=== PATIENT | male | born 1960 | race Caucasian/White ===

== ENCOUNTER 2018-07-15 11:45 | Inpatient (IN) ==
[2018-07-15] MEDS ORDERED: Acetaminophen 325 MG Tablet PO PRN (15:46)
[2018-07-15] MEDS ORDERED: Aluminum/Magnesium/Simethacone Susp 30 ML UDC PO PRN (15:46)
[2018-07-16] MEDS ORDERED: Haloperidol Inj 5 MG/ML Ampul IV.PUSH PRN (08:07)
[2018-07-16] MEDS ORDERED: LORazepam 1 MG Tablet PO PRN (08:07)
[2018-07-16] MEDS: Multivitamin/Minerals Therapeutic Tablet PO SCH (10:17)
[2018-07-16] MEDS: Folic Acid 1 MG Tablet PO SCH (10:17)
--- NOTE | 2018-07-16 10:34 | P.TTN ---
- Patient Problems Problems: 1. Discharge planning 2. Medication compliance 3. Knowledge deficit 4. Lack of coping skills - Progress Toward Goals Provider Present: Dr. Anson Horton Provider Input: 07/16/18: Pt is new, Psych eval from MD to be completed. Therapist will meet with MD to discuss further findings. Nurse Input: 07/16/18: Pt is new, no concerns at this time per MARIA TERESA Trujillo. Psychiatric Counselors Present: Other Psychiatric Therapist Input: 07/16/18: Pt is new, BPSA to be completed by [facility]. D/c plan pending to BPSA findings and further eval from psychiatrist. Group Spec/RT/OT/SUGGS Present: Juliano Romero OT, IFEANYI Martínez Occupational Therapist Input: 07/16/18: Pt is new, group attendance to be evaluated after today. - Documentation Teaching Recipient: Patient
--- NOTE | 2018-07-16 10:56 | MH ---
cc: Mundo Horton MD DATE OF ADMISSION: 07/15/2018 ADMITTING DIAGNOSES: 1. Adjustment disorder with depressed mood; F43.21. Strong suspicion for malingering for assisted. 2. Alcohol use disorder, suspected severe; F10.20. LEGAL STATUS: The patient is capacitated to consent for admission and for medication/treatment. Voluntary status. HISTORY OF PRESENT ILLNESS: Mr. Rowe is a 57-year-old male with reported history of depression and anxiety, who presents in transfer from [facility] under a Bhakta Act. The patient presented there complaining of suicidal and homicidal ideation. No specific victim cited. It is noted that he was Bhakta Acted in May and June for similar issues and was sent to a psychiatric facility, but never took the medications prescribed to him after discharge or followed up on an outpatient basis. Documentation from outside hospital reviewed. Reviewing our electronic medical record, I note the patient was psychiatrically admitted under my care in March 2016. I note in my documentation that the patient was suspected of exaggerating his psychiatric symptoms then so as to prolong his inpatient psychiatric hospital stay as he was otherwise without stable housing. I also see notation of antisocial personality traits. The patient seen and examined with nurse. Chart reviewed. Case discussed with nursing staff. No behavioral issues noted. Of note, nursing staff has reason to believe that the patient is conspiring with another homeless patient on the unit to malinger for assisted. On my examination today, the patient is a vague and fairly manipulative historian. Ongoing symptom exaggeration or malingering for assisted is suspected and antisocial personality traits are noted. The patient admits that he has been prescribed multiple psychotropic medications in the past, but has not taken them faithfully. Presently, the patient describes some vague suicidal ideation without specific plan or intent. No reported urge to hurt himself on the inpatient unit. The patient does have a history of draping a sheet around his neck in a suicidal gesture during his previous hospitalization here, and I have placed an order to have the patient put into a camera room on the high acuity unit for closer monitoring, although he does presently contract for safety on the inpatient unit. Besides the suicidal ideation, the patient has a paucity of psychiatric symptoms. He complains of vague low mood and anxiety, without associated symptoms. He complains of some sleep disturbance. He says, "I'm in a fog." The patient does say "I hear things. I see things." However, the patient is unable to describe these hallucinations in any meaningful detail. Indeed, when I pressed the patient to describe them he says, "I don't know." No delusional material. No homicidal ideation presently. The remainder of the psychiatric ROS is negative. No acute physical complaints. PAST PSYCHIATRIC HISTORY: The patient reports a history of depression and anxiety. His discharge diagnosis during his hospitalization under my care in 2016 was alcohol dependence. He has not followed up on an outpatient basis with mental health. He reports that he was psychiatrically hospitalized at [facility] 2 months ago. He reports that he has attempted suicide repeatedly, by overdose chiefly and once by hanging. FAMILY HISTORY: The patient denies a family history of serious mental illness. He does report a paternal cousin completed suicide. CHEMICAL DEPENDENCY HISTORY: The patient reports he has been drinking 2 pints of liquor a day. His last drink was a week ago. He does complain of feeling somewhat shaky, but otherwise has no withdrawal symptoms. He denies history of seizures. He does endorse a history of DTs in the past. No other substance use reported. SOCIAL HISTORY: The patient is homeless. He has a high school education. He has no income. He is looking to apply for disability. He is single with no children. He is a Orthodox. He denies any history. Denies any legal history. Denies any access to guns or firearms. PAST MEDICAL HISTORY: The patient reports a history of left total hip arthroplasty, and I see it noted in the documentation from outside hospital that this was performed last month at [facility]. The patient has no history of seizure, but I do see that Depakote is listed from outside hospital medication list, possibly for psychiatric indication. MEDICATIONS: The patient reports that he has been not adherent with home medications. ALLERGIES: NO KNOWN ALLERGIES. REVIEW OF SYSTEMS: Except as noted in HPI, all this is negative. PHYSICAL EXAMINATION: VITAL SIGNS: Temperature 98.1, pulse 73 per minute, respirations 18, blood pressure 118/66, pulse oximetry 97% on room air. GENERAL: Physical examination was completed by the ED provider at outside hospital. On my examination today, the patient appears to be in no acute physical distress. NEUROLOGIC: No motor abnormalities noted. No hand tremor. No diaphoresis, no mydriasis, no other signs of GABAergic withdrawal. LABORATORY DATA: Laboratory is reviewed CBC reveals mild normocytic anemia with a hemoglobin of 12.2. White blood cell count and platelet count are within normal limits. CMP is unremarkable; urine toxicology is negative. Tylenol and salicylate level are undetectable. Alcohol level undetectable. Urinalysis fairly bland. IMAGING: X-ray of the hip revealed mild soft tissue swelling of the left hip, but no other acute process is indicated. MENTAL STATUS EXAMINATION: The patient is in hospital attire. He is fairly well groomed and maintaining basic hygiene. He is awake, alert and oriented x3. No motor abnormalities noted. Speech is within normal limits for rate, tone, and volume. Language and fund of knowledge are average. Focus and concentration are intact. Memory is grossly intact on clinical exam. Mood is reportedly depressed, but affect is fairly full and reactive and inconsistent with stated mood. Thought process linear. No loosening of associations. No delusional material elicited. Denies audiovisual hallucinations. Endorses vague suicidal ideation without specific plan or intent at this point. No homicidal ideation. Insight and judgment are adequate. ASSESSMENT AND PLAN: This is a 57-year-old male with psychiatric history as detailed above, who presents in transfer from outside hospital under Bhakta Act. On my examination today, the patient is a fairly vague and manipulative historian. There is strong suspicion for malingering for assisted. He does endorse some vague ongoing suicidal ideation, and we will plan to admit the patient to the Inpatient Psychiatric Unit to monitor for any acute impairments in safety. Admit inpatient. Voluntary status. For management of the patient's dysphoria, I will place him back on a regimen he was on last time, namely Remeron and Seroquel. Initiate Remeron 15 mg at bedtime for dysphoria and Seroquel at low dose for mood stabilization and reported hallucinations. Plan to titrate these medication to effect and as tolerated. Atarax as needed for anxiety. Melatonin as needed for sleep. I will consult the hospitalist to assist with medical management in light of the patient's recent left hip arthroplasty. CIWA scale with Ativan for the management of any withdrawal. Thiamine and folate. Seizure precautions. Vitals every 4 hours as per CIWA. Counselor to see. Collateral information. Disposition planning. ESTIMATED LENGTH OF STAY: Three to five days. MD Mahesh Bowen , 10:27 AM , 10:42 AM [facility]
[2018-07-16 11:10] LABS: Chol/HDL Ratio 3.83 Ratio; HDL Cholesterol 37.3 mg/dL (40.0-60.0)
[2018-07-16 11:11] LABS: Calcium 8.4 mg/dL (8.5-10.1); Carbon Dioxide 29.8 meq/L (21.0-32.0); Potassium 3.7 meq/L (3.5-5.1)
[2018-07-16 11:32] LABS: Hemoglobin A1c 4.3 % (4.3-6.0)
--- NOTE | 2018-07-16 17:01 | P.CONIM ---
History of Present Illness Primary Care Provider: UNKNOWN Chief Complaint: Would like something to sleep at night History of Present Illness: 57-year-old male with a history of depression, anxiety, recent left total hip arthroplasty performed on 05/19 at [facility], having been discharged 2 weeks ago until readmission recently due to suicidal ideation. Patient reports he is able to ambulate on this,, is visualized ambulating without difficulty. He reports that pain continues in left hip with movement, however is not worsened. I asked him if he wants something for the pain, and he says he really just wants something to sleep at night. He denies any fevers, chills, chest pain, shortness breath, nausea, vomiting. Patient does report history of alcohol withdrawal in the past. He denies seizures.. He says his last drink was 1 week ago, and denies any shaking or withdrawal currently. Review of Systems All other systems reviewed negative except as stated in HPI PMFSH - History History Provided By: Patient - Medical History Medical History: Medical History (Last Reviewed 07/16/18 @ 16:46 by Steven Anglin MD) Pupil irregular of left eye Traumatic brain injury - Surgical History Surgical History: Surgical History (Last Reviewed 07/16/18 @ 16:46 by Steven Anglin MD) History of total left hip replacement - Family History Family History: Family History (Last Updated 07/16/18 @ 16:47 by Steven Anglin MD) Father Alcoholism - Social History I have reviewed the patient's Social History: Yes - Tobacco History Second Hand Smoke Exposure: No Tobacco Use In Past 30 Days: No Smoking Status: Never smoker - Alcohol History How Often Do You Have a Drink Containing Alcohol: 2 to 3 times a week - Substance Use History Substance History: Active Abuse - Substance Use Type Alcohol Status: Active Route Used: By Mouth Frequency: Pt reports "I was drinking as much as I could until I black out." Last Used: Pt reports "maybe last week." Reason for Use: Sleep - Immunization History Tetanus Immunization: Unsure Hx Influenza Vaccine This Season: No Medications and Allergies Active Medications: Active Medications Acetaminophen (Tylenol) 650 mg PO Q4H PRN PRN Reason: Pain 1-5 or Temp >101F Al Hydrox/Mg Hydrox/Simethicone (Mag-Al Plus Susp Liq) 30 ml PO Q6H PRN PRN Reason: DYSPEPSIA Al Hydroxide/Mg Hydroxide (Milk Of Marcie Jonas) 30 ml PO DAILY PRN PRN Reason: CONSTIPATION Flumazenil (Romazecon Inj) 0.2 mg IV.PUSH Q1M PRN PRN Reason: OVERSEDATION Folic Acid (Folic Acid) 1 mg PO DAILY [facility] Stop: 07/21/18 08:59 Last Admin: 07/16/18 10:17 Dose: 1 mg Haloperidol Lactate (Haldol Inj) 1 mg IV.PUSH Q15M PRN PRN Reason: for severe agitation Hydroxyzine HCl (Atarax) 50 mg PO Q6H PRN PRN Reason: ANXIETY Lorazepam (Ativan) 1 mg PO Q4H PRN PRN Reason: for CIWA 8-10 Lorazepam (Ativan) 2 mg PO Q2H PRN PRN Reason: for CIWA 11-14 Lorazepam (Ativan Inj) 2 mg IV.PUSH Q2H PRN PRN Reason: for CIWA 11-14 Lorazepam (Ativan Inj) 2 mg IV.PUSH Q1H PRN PRN Reason: for CIWA 15-20 Lorazepam (Ativan Inj) 2 mg IV.PUSH Q15M PRN PRN Reason: for CIWA > 20 Lorazepam (Ativan Inj) 1 mg IV.PUSH Q4H PRN PRN Reason: for CIWA 8-10 Melatonin (Melatonin) 5 mg PO HS PRN PRN Reason: INSOMNIA Mirtazapine (Remeron) 15 mg PO HS [facility] Multivitamins/Minerals (Theragran-M) 1 tab PO DAILY [facility] Stop: 07/21/18 08:59 Last Admin: 07/16/18 10:17 Dose: 1 tab Quetiapine Fumarate (Seroquel) 25 mg PO BID [facility] Thiamine HCl (Vitamin B1) 100 mg PO DAILY [facility] Last Admin: 07/16/18 10:17 Dose: 100 mg Allergies Allergy/AdvReac Type Severity Reaction Status Date / Time No Known Allergies Allergy Uncoded 12/29/14 21:42 Exam Vital signs: Vital Signs 07/16/18 05:53 Temperature 98.1 F Pulse Rate 73 Respiratory Rate 18 Blood Pressure 118/66 Pulse Oximetry 97 Intake & Output 07/15/18 07/16/18 07/16/18 18:59 06:59 18:59 Intake Total 240 / 240 Balance 240 / 240 Intake: Oral 240 / 240 Narrative: GENERAL: Patient sitting in wheelchair, able to stand quickly and walking in room without any apparent difficulty. SKIN: Warm and dry. HEAD: Atraumatic. Normocephalic. EYES: Left pupil dilated and nonreactive which patient says is chronic secondary to old TBI many years ago. Right pupil reactive. Extraocular muscles intact.. No scleral icterus. No injection or drainage. ENT: No nasal bleeding or discharge. Mucous membranes pink and moist. NECK: Trachea midline. No JVD. CARDIOVASCULAR: Regular rate and rhythm. RESPIRATORY: No accessory muscle use. Clear to auscultation. Breath sounds equal bilaterally. GASTROINTESTINAL: Abdomen soft, non-tender, nondistended. Hepatic and splenic margins not palpable. MUSCULOSKELETAL: Extremities without clubbing, cyanosis, or edema. No obvious deformities. Patient has approximately 7 cm vertical incision which has healed well over the left trochanter. No surrounding erythema or induration. Nontender. NEUROLOGICAL: Awake and alert. No obvious cranial nerve deficits. Motor grossly within normal limits. Five out of 5 muscle strength in the arms and legs. Normal speech. PSYCHIATRIC: Appropriate mood and affect; insight and judgment normal. Results - Labs CBC & Chem 7: 07/16/18 09:50 Labs: Laboratory Results - last 24 hr 07/16/18 07/16/18 07/16/18 09:50 09:50 09:50 Sodium 143 Potassium 3.7 Chloride 109 H Carbon Dioxide 29.8 Anion Gap 4 L BUN 16 Creatinine 0.94 Estimated GFR 83 L Random Glucose 79 Hemoglobin A1c 4.3 Calcium 8.4 L Triglycerides 91 Cholesterol 143 LDL Cholesterol, Calc 88 HDL Cholesterol 37.3 L Cholesterol/HDL Ratio 3.83 TSH 1.540 Assessment and Plan - Plan //Suicidal ideation. Questionable. As per psychiatry //Recent hip replacement on the left formed 06/19/18 Appears to be healing reasonably well. -Patient will benefit from physical therapy while here Patient appears to have no difficulty ambulating on my exam, indeed able to get up quickly from wheelchair without significant use of arms. = He reports vague pain, says this is getting better. I believe he is asking for narcotics more as a sleep aid. Will defer to psychiatry //History of alcoholism After recent hospitalization and period of sobriety, does not appear to be in withdrawal at this time. -Patient should be provided with alcohol rehab information. = We will order LFTs, INR = Continue thiamine daily. -Would recommend discontinuation of CIWA protocol = Given the fact he is in psychiatry, will order ammonia level DVT prophylaxis. Patient is ambulatory. Discussed Condition With: Patient, Nurse
[2018-07-16 18:19] LABS: Albumin 3.2 g/dL (3.4-5.0)
[2018-07-16 18:21] LABS: Total Protein 6.8 g/dL (6.4-8.2)
[2018-07-16 19:25] LABS: Prothrombin Time 10.3 sec (9.8-11.6)
[2018-07-16] MEDS: Mirtazapine 15 MG Tablet PO SCH (20:47)
[2018-07-16] MEDS: QUEtiapine 25 MG Tablet PO SCH (20:47)
[2018-07-17] MEDS: Multivitamin/Minerals Therapeutic Tablet PO SCH (09:45)
[2018-07-17] MEDS: Folic Acid 1 MG Tablet PO SCH (09:45)
[2018-07-17] MEDS: QUEtiapine 25 MG Tablet PO SCH ×2 (09:58→20:43)
--- NOTE | 2018-07-17 12:54 | ECG ---
Date Performed: 07/16/2018 Time Performed: 11:18:43 PTAGE: 57 years EKG: Sinus rhythm NORMAL ECG Since the PREVIOUS TRACING , no significant change noted PREVIOUS TRACIN04/16/2016 11.37 DOCTOR: Cornel Thao Interpretating Date/Time 07/17/2018 12:52:49
--- NOTE | 2018-07-17 16:12 | P.PNPSY ---
Subjective Remarks: Reviewed electronic medical records and discussed case with staff. Follow-up was conducted in the patient's room with MARIA TERESA Moya present. She states that he has been angry and agitated. Patient states "I am just sleeping". Reports that he did not sleep well last night and his appetite has been "so-so". He reports his mood as being "shitty". And states that the medication gives him a bad after taste. Assessment and Plan - Assessment (1) Adjustment disorder with depressed mood Code(s): F43.21 - Adjustment disorder with depressed mood Status: Acute - Plan Plan: Patient will be reevaluated by the attending psychiatrist. Continue with current treatment plan. Justification for Continued Inpatient Stay: Moving this patient to a less restrictive environment would likely result in decompensation.
[2018-07-17] MEDS: Mirtazapine 15 MG Tablet PO SCH (20:43)
[2018-07-18] MEDS: Folic Acid 1 MG Tablet PO SCH (08:20)
[2018-07-18] MEDS: QUEtiapine 25 MG Tablet PO SCH ×2 (08:20→20:03)
[2018-07-18] MEDS: Multivitamin/Minerals Therapeutic Tablet PO SCH (08:20)
--- NOTE | 2018-07-18 10:33 | P.PNPSY ---
Subjective Remarks: Reviewed electronic record and discussed with nursing staff. Rounded with MARIA TERESA Trujillo. Patient was in his room. He states that he is experiencing left hip and back pain. Requesting motrin. Endorses auditory hallucinations that tell him to "kill himself." He is withdrawn and seclusive. Uses a wheelchair to get around. Denies SI/HI. Review of Systems All other systems reviewed negative except as stated in HPI Musculoskeletal: Reports back pain, Reports other (left hip pain ) Mental Status Examination Appearance: Appropriate Consciousness: Alert Orientation: Person, Place Motor Activity: Abnormal gait Speech: Unremarkable Language: Adequate Fund of Knowledge: Poor Attention and Concentration: Easily distracted Memory: Immediate (intact) Mood: Sad Affect: Flat, Blunt Thought Process & Associations: Linear Thought Content: Hallucinations (endorsing auditory hallucinations , telling him to " kill himself" ) Hallucination Type: Auditory (endorsing auditory hallucinations, telling him to "kill himself" ) Assessment and Plan - Assessment (1) Adjustment disorder with depressed mood Code(s): F43.21 - Adjustment disorder with depressed mood Status: Acute - Plan Plan: Patient will be reevaluated by the attending psychiatrist. Continue with current treatment plan. Justification for Continued Inpatient Stay: Moving patient to a less restrictive environment may result in his decompensation.
--- NOTE | 2018-07-18 15:33 | P.PN ---
Subjective Interval history: Follow up on patient s/p recent left hip replacement sx. Patient seen and examined. Patient complaining of poorly controlled left hip pain. He says the Tylenol is not helping. He denies any fever or chills. He denies any chest pain or dyspnea. He says he has a rolling walker. Physical Exam Vital signs: Vital Signs 07/17/18 19:14 07/18/18 06:09 Temperature 97.7 F 98.0 F Pulse Rate 91 H 74 Respiratory Rate 18 17 Blood Pressure 130/76 99/51 L Pulse Oximetry 100 96 Narrative: GENERAL: WDWN male patient, INAD. Awake and alert. Sitting in dayroom watching TV. SKIN: Warm and dry. HEENT: Atraumatic. Normocephalic. EOMI. No scleral icterus. No injection or drainage. No nasal bleeding or discharge. Mucous membranes pink and moist. NECK: Trachea midline. CARDIOVASCULAR: Regular rate and rhythm. RESPIRATORY: No accessory muscle use. Clear to auscultation. Breath sounds equal bilaterally. GASTROINTESTINAL: Abdomen soft, non-tender, nondistended. +BS. MUSCULOSKELETAL: Extremities without clubbing, cyanosis, or edema. +Well healed surgical incision over left hip. NEUROLOGICAL: Awake and alert. No obvious cranial nerve deficits. Motor grossly within normal limits. Able to move all extremities spontaneously. Normal speech. PSYCHIATRIC: Calm and cooperative. Results - Labs CBC & Chem 7: 07/16/18 09:50 Assessment and Plan - Plan 57-year-old male with: Depression Suicidal ideation -Management per psychiatric team Recent left hip replacement surgery Complaining of postoperative pain poorly managed with Tylenol alone -Ultram prn pain -Continue participation with PT Hx of alcoholism No evidence of active withdrawal ammonia level 14 LFTs WNL -Continue thiamine daily -Would recommend discontinuation of CIWA protocol Hypotensive, asymptomatic Suspect secondary to Seroquel use -continue Seroquel per psychiatry -encourage po fluid intake -Continue to monitor BP trend DVT prophylaxis -Patient is ambulatory Patient appears stable from hospitalist standpoint. [facility] will sign off. Please reconsult if needed. Discussed Condition With: patient, nursing staff
[2018-07-18] MEDS: Mirtazapine 15 MG Tablet PO SCH (20:03)
[2018-07-19] MEDS: Folic Acid 1 MG Tablet PO SCH (08:37)
[2018-07-19] MEDS: QUEtiapine 25 MG Tablet PO SCH ×2 (08:37→20:52)
[2018-07-19] MEDS: Multivitamin/Minerals Therapeutic Tablet PO SCH (08:37)
--- NOTE | 2018-07-19 09:47 | P.PNPSY ---
Subjective Remarks: Patient seen and examined with nurse. Chart reviewed. CIWA scores have been 0. Case discussed with nursing staff who reports patient is somewhat irritable and cranky at times but no real behavioral problem. On my examination today, the patient complains of poor sleep. Mood is "the same as when I came in." He continues to endorse vague suicidal ideation saying "it is something I will have to live with until I do something." No reported urge to hurt himself on the inpatient unit. He continues to endorse vague auditory hallucinations saying "I hear shit." No reported command auditory hallucinations to hurt self or others. Denies side effects from medications except 1 of the medications, reportedly a vitamin supplement, leaves a bad taste in his mouth. No acute physical complaints; does complain of some chronic hip and back pain. Vital Signs Temp Pulse Resp BP Pulse Ox 07/19/18 05:40 97.8 F 64 18 118/61 99 07/18/18 17:29 98.7 F 95 H 18 115/70 98 07/18/18 16:45 98.7 F 95 H 18 115/70 98 Intake and Output 07/18/18 07/19/18 07/19/18 22:59 06:59 14:59 Other: Weight 87.1 kg Labs reviewed. Review of Systems All other systems reviewed negative except as stated in HPI Mental Status Examination Appearance: Appropriate Consciousness: Alert Orientation: Person, Place Motor Activity: Other (No motoric abnormalities noted) Speech: Unremarkable Language: Adequate Fund of Knowledge: Adequate Attention and Concentration: Adequate Memory: Unremarkable (Grossly intact on clinical exam) Mood: Other (Dysphoric) Affect: Irritable Thought Process & Associations: Intact Thought Content: Hallucinations (Vague) Hallucination Type: Auditory Delusion Type: None Suicidal Ideation: Yes Suicidal Plan: No Suicidal Intention: No Homicidal Ideation: No Homicidal Plan: No Homicidal Intention: No Insight: Fair Judgment: Impulsive Assessment and Plan - Assessment (1) Adjustment disorder with depressed mood Code(s): F43.21 - Adjustment disorder with depressed mood Status: Acute - Plan Plan: Titrate Seroquel to 25 mg in the morning and 50 mg at bedtime for mood stabilization and to help with sleep. I did discuss with patient that titration of Seroquel may cause some orthostasis, and BPs are already on the low side. We will continue to monitor BP. Continue Remeron as ordered. Continue to monitor on the inpatient unit. Continue other medications and care as ordered. Justification for Continued Inpatient Stay: Monitoring for impairment in safety. Medication changes. Discharge Planning: Pending further observation Request Healthcare Surrogate/Guardian Advocate?: No
[2018-07-19] MEDS: Melatonin 5 MG Tablet PO PRN (20:51)
[2018-07-19] MEDS: Mirtazapine 15 MG Tablet PO SCH (20:52)
[2018-07-20] MEDS: QUEtiapine 25 MG Tablet PO SCH ×2 (08:45→20:56)
[2018-07-20] MEDS: Multivitamin/Minerals Therapeutic Tablet PO SCH (08:51)
--- NOTE | 2018-07-20 10:01 | P.PNPSY ---
Subjective Remarks: Patient seen and examined with nurse. Chart reviewed. Case discussed with nursing staff who reports patient told nursing that he always has SI except when he is, in patient's words, "shit-faced drunk." He remains somewhat peevish and entitled but otherwise no real behavioral problem on the inpatient unit. Case discussed in treatment team. Counselor relates that she provided patient with a list of homeless resources to call, but he has not done so. On my exam, patient complains of heartburn, which he attributes to thiamine supplement, and he requests that this be discontinued, which I have done. He confirms report to nurse that he is never free of suicidal ideation. He does not describe any suicidal plan or intent. He does express more hope for the future. He says that his plan for after discharge is to stay with a friend periodically who allows him to shower and attend to other basic needs. He declines assistance with homeless resources. Patient has no further therapeutic goals for this hospitalization. He declines med adjustment today. He seems to feel that he is more or less at his chronic baseline. He requests a discharge tomorrow. Denies side effects from medications. No acute physical complaints. Vital Signs Temp Pulse Resp BP Pulse Ox 07/20/18 05:48 98.1 F 88 18 121/70 98 07/19/18 19:43 18 113/81 99 07/19/18 16:57 98.7 F 100 H 18 104/68 98 Labs reviewed. Review of Systems All other systems reviewed negative except as stated in HPI Mental Status Examination Appearance: Appropriate Consciousness: Alert Orientation: Person, Place Motor Activity: Other (No abnormal motor movements noted.) Speech: Unremarkable Language: Adequate Fund of Knowledge: Adequate Attention and Concentration: Adequate Memory: Unremarkable (Grossly intact on clinical exam) Mood: Other (Mildly dysphoric) Affect: Irritable (Mild) Thought Process & Associations: Intact Thought Content: Appropriate Hallucination Type: None Delusion Type: None Suicidal Ideation: Yes (Vague, at chronic baseline.) Suicidal Plan: No Suicidal Intention: No Homicidal Ideation: No Homicidal Plan: No Homicidal Intention: No Insight: Fair Judgment: Impulsive Assessment and Plan - Assessment (1) Adjustment disorder with depressed mood Code(s): F43.21 - Adjustment disorder with depressed mood Status: Acute - Plan Plan: I suspect patient is at or near his chronic baseline and is approaching maximal benefit from this hospital stay. Continue Seroquel and Remeron as ordered. Continue to monitor on the inpatient unit. Continue other care as ordered. Justification for Continued Inpatient Stay: Final discharge planning. Discharge Planning: Anticipate discharge Thursday as per patient request. Request Healthcare Surrogate/Guardian Advocate?: No
--- NOTE | 2018-07-20 14:56 | P.TTN ---
- Patient Problems Problems: 1. Discharge planning 2. Medication compliance 3. Knowledge deficit 4. Lack of coping skills - Progress Toward Goals Provider Present: Dr. Anson Horton Provider Input: 07/20/18: Pt Seroquel was adjusted, pt is getting ready for dc. 07/16/18: Pt is new, Psych eval from MD to be completed. Therapist will meet with MD to discuss further findings. Nurse Input: 07/20/18: Per RN Eddi pt has been med compliant, eating and sleeping well, no beh complaints. 07/16/18: Pt is new, no concerns at this time per MARIA TERESA Trujillo. Psychiatric Counselors Present: Other Psychiatric Therapist Input: 07/20/18: Pt wants to go back to [place], doesn't want to work or go to a [employer], he has been advice of possible dc tomorrow. : Pt is new, BPSA to be completed by [facility]. D/c plan pending to BPSA findings and further eval from psychiatrist. Group Spec/RT/OT/SUGGS Present: Juliano Romero OT, IFEANYI Martínez Occupational Therapist Input: 07/20/18: Pt is not participating in groups, isolating in room. 07/16/18: Pt is new, group attendance to be evaluated after today. - Documentation Teaching Recipient: Patient
[2018-07-20] MEDS: Mirtazapine 15 MG Tablet PO SCH (20:56)
[2018-07-20] MEDS: Melatonin 5 MG Tablet PO PRN (20:56)
--- NOTE | 2018-07-21 09:15 | P.DSPSY ---
Psychiatry Discharge Summary Inpatient Psychiatric care?: Yes Advance Directives: No Mental Health Advance Directive: No Health Care Proxy: No - Admission Admission Date: July 15, 2018 14:46 - Admission Diagnosis (1) Adjustment disorder with depressed mood Code(s): F43.21 - Adjustment disorder with depressed mood (2) Alcohol use disorder, severe, dependence Code(s): F10.20 - Alcohol dependence, uncomplicated Brief History: Mr. Rowe is a 57-year-old male with reported history of depression and anxiety, who presents in transfer from [facility] under a Bhakta Act. The patient presented there complaining of suicidal and homicidal ideation. No specific victim cited. It is noted that he was Bhakta Acted in May and June for similar issues and was sent to a psychiatric facility, but never took the medications prescribed to him after discharge or followed up on an outpatient basis. Documentation from outside hospital reviewed. Reviewing our electronic medical record, I note the patient was psychiatrically admitted under my care in March 2016. I note in my documentation that the patient was suspected of exaggerating his psychiatric symptoms then so as to prolong his inpatient psychiatric hospital stay as he was otherwise without stable housing. I also see notation of antisocial personality traits. The patient seen and examined with nurse. Chart reviewed. Case discussed with nursing staff. No behavioral issues noted. Of note, nursing staff has reason to believe that the patient is conspiring with another homeless patient on the unit to malinger for senior living. On my examination today, the patient is a vague and fairly manipulative historian. Ongoing symptom exaggeration or malingering for senior living is suspected and antisocial personality traits are noted. The patient admits that he has been prescribed multiple psychotropic medications in the past, but has not taken them faithfully. Presently, the patient describes some vague suicidal ideation without specific plan or intent. No reported urge to hurt himself on the inpatient unit. The patient does have a history of draping a sheet around his neck in a suicidal gesture during his previous hospitalization here, and I have placed an order to have the patient put into a camera room on the high acuity unit for closer monitoring, although he does presently contract for safety on the inpatient unit. Besides the suicidal ideation, the patient has a paucity of psychiatric symptoms. He complains of vague low mood and anxiety, without associated symptoms. He complains of some sleep disturbance. He says, "I'm in a fog." The patient does say "I hear things. I see things." However, the patient is unable to describe these hallucinations in any meaningful detail. Indeed, when I pressed the patient to describe them he says, "I don't know." No delusional material. No homicidal ideation presently. The remainder of the psychiatric ROS is negative. No acute physical complaints. Tobacco Use In Past 30 Days: No How Often Do You Have a Drink Containing Alcohol: 2 to 3 times a week Hospital Course: The patient was admitted to a locked, inpatient psychiatric unit. A general medical consultation was obtained. Appropriate precautions were in place throughout patient's hospital stay. The patient was seen and examined on the unit by psychiatry and also visited by counselor. Psychotropic medications were adjusted. Patient tolerated medication changes well without significant side effects. There was no evidence of any suicidality or homicidality on the inpatient unit. There was no evidence of self-care deficit. Patient was noted to be quite entitled and demanding by staff. He participated little in unit activities, attending meals and little else. On the day of discharge: Patient seen and examined with nurse. Chart reviewed. Case discussed with nursing staff. No behavioral issues noted overnight. Patient reportedly remains irritable and entitled. Case discussed with counselor. On my examination today, patient is in agreement with discharge today. He feels he is at his psychiatric baseline. He plans to go stay with a friend until he can find more permanent housing. He has consistently declined any efforts to assist him with placement. He describes no acute suicidal or homicidal ideation, intent or plan, although as noted yesterday patient says that he is never without some chronic, low-level suicidal ideation. In context , though, this seems manipulative with the goal of sowing doubt in plan for discharge today as patient is quite comfortable on the unit. Affect does remain a little dysphoric, although I can elicit no severe depressive or hypomanic/manic symptoms. Patient is agreeable to titration of his Remeron on discharge to manage dysphoria. He denies any audiovisual hallucinations. I can elicit no delusional beliefs. Antisocial personality traits are noted. He denies side effects from medications. He has no acute physical complaints. Weighing the acute, chronic, and protective factors and based on the available evidence, I senior business broker that patient is at lower imminent risk for harm to self/others , and his level of function is adequate for outpatient care. Patient agrees that he is at his psychiatric baseline. I do strongly suspect malingering for senior living as a primary wrecker driver for this hospitalization, and so it is conceivable that the patient will continue to report psychiatric symptoms after discharge to facilitate readmission to the inpatient unit. I have prescribed patient the smallest quantity of medications consistent with good care given his circumstance to reduce the risk of gestural overdose in an effort to facilitate readmission. Patient's antisocial personality style also confers chronic risk, but this risk would not be ameliorated by retaining the patient on the inpatient psychiatric unit. Patient has achieved maximal benefit from this inpatient psychiatric hospital stay. He will be discharged today with psychiatric follow-up as arranged by counselor. Patient is also to follow-up with primary care. I have counseled the patient to abstain from substances of abuse. I have counseled the patient regarding warning signs for need to return to the psychiatric emergency room as part of a general safety plan. Patient does agree to return to the ED if he should experience any suicidal or violent ideation. - Discharge Discharge Date: 07/21/18 - Discharge Diagnosis (1) Adjustment disorder with depressed mood Diagnosis: Principal (Improved versus admission. Malingering suspected.) Code(s): F43.21 - Adjustment disorder with depressed mood Status: Acute (2) Alcohol use disorder, severe, dependence Diagnosis: Secondary (Counseled to quit) Code(s): F10.20 - Alcohol dependence, uncomplicated Status: Acute Discharge Disposition: As per counselor's notes - Discharge Instructions Discharge Diet: Regular Diet Activities You Can Perform: Weight Bearing As Tolerat - Discharge Time > 30 minutes Mental Status Examination Appearance: Appropriate Consciousness: Alert Orientation: x4 Motor Activity: Other (No motor abnormalities noted. No signs of withdrawal noted.) Speech: Unremarkable Language: Adequate Fund of Knowledge: Adequate Attention and Concentration: Adequate Memory: Unremarkable (Grossly intact on clinical exam) Mood: Other (Remains mildly dysphoric) Affect: Irritable (Mild) Thought Process & Associations: Intact, Logical, Goal directed, Linear Thought Content: Appropriate Hallucination Type: None Delusion Type: None Suicidal Ideation: No (No acute suicidal ideation. See above.) Suicidal Plan: No Suicidal Intention: No Homicidal Ideation: No Homicidal Plan: No Homicidal Intention: No Insight: Fair Judgment: Impulsive (Chronic condition) Discharge/Advance Care Plan - Results Vital Signs: Last Vital Signs Temp 97.8 F 07/21/18 05:40 Pulse 83 07/21/18 05:40 Resp 18 07/21/18 05:40 BP 99/68 L 07/21/18 05:40 Pulse Ox 98 07/21/18 05:40 Lab Results: Laboratory Results Hemoglobin A1c 4.3 % (4.3-6.0) 07/16/18 09:50 Triglycerides 91 mg/dL (42-150) 07/16/18 09:50 Cholesterol 143 mg/dL (120-200) 07/16/18 09:50 LDL Cholesterol, Calc 88 mg/dL (0-99) 07/16/18 09:50 HDL Cholesterol 37.3 mg/dL (40.0-60.0) L 07/16/18 09:50 TSH 1.540 uIU/mL (0.358-3.740) 07/16/18 09:50 Summary of Procedures: None done. Pending Results: None - Medications Number of antipsychotic medications at discharge: 1 - Discharge Care Plan Goals to Promote Your Health: * To prevent worsening of your condition and complications * To maintain your health at the optimal level Directions to Meet Your Goals: Take your medications as prescribed Follow your dietary instruction Follow activity as directed Keep your appointments as scheduled Take your immunizations and boosters as scheduled If your symptoms worsen call your PCP, if no PCP go to Urgent Care Center or Emergency Room For 09/03 questions related to your inpatient stay or results of tests pending at discharge, please contact Dr. Mundo Horton MD at Smoking is Dangerous to Your Health. Avoid second hand smoking
[2018-07-21] MEDS: QUEtiapine 25 MG Tablet PO SCH (09:45)
== END 2018-07-21 15:34 | disposition home or self-care (01) ==
LOC: H270 14:46
PROVIDERS: ADMIT Psychiatry & Neurology Psychiatry; ATTEND Psychiatry & Neurology Psychiatry

== ENCOUNTER 2018-08-08 14:45 | Inpatient (IN) ==
[2018-08-08] MEDS ORDERED: Aluminum/Magnesium/Simethacone Susp 30 ML UDC PO PRN (20:42)
--- NOTE | 2018-08-09 09:46 | P.HPPSY ---
Provisional Diagnosis Admission Date: August 08, 2018 19:42 [place] I.: Major depressive disorder, recurrent, severe with psychotic features, rule out conscious simulation Competence Certification of Person's Competence To Provide Express and Informed Consent I have personally examined Randal Reyes, a person being served at [facility] on, August 09, 2018 0934. Express and informed consent means consent voluntarily given in writing, by a competent person, after sufficient explanation and disclosure of the subject matter involved to enable the person to make a knowing and willful decision without any element of force, fraud, deceit, duress, or other form of constraint or coercion. This person is 18 years of age or older, is not now known to be incompetent to consent to treatment with a guardian advocate, and does not have a health care surrogate or proxy currently making medical treatment decisions. I have found this person to be one of the following: [xxx] Competent to provide express and informed consent, as defined above, for voluntary admission to this facility and is competent to provide express and informed consent for treatment. He/she has the consistent capacity to make well reasoned, willful, and knowing decisions concerning his or her medical or mental health treatment. The person fully and consistently understands the purpose of the admission for examination/placement and is fully capable of personally exercising all rights assured [place] [] Incompetent to provide express and informed consent to voluntary admission, and this is incompetent to provide express and informed consent to treatment. The person must be transferred to involuntary status and a petition for a guardian advocate filed with the Circuit Court. [] Refusing to provide express and informed consent to voluntary admission but is competent to provide express and informed consent for treatment. The person must be discharged or transferred to involuntary status. Form shall be completed within 24 hours of a person's arrival at the receiving facility and filed in the clinical record of each person: 1. Admitted on a voluntary basis 2. Permitted to provide express and informed consent to his/her own treatment 3. Allowed to transfer from involuntary to voluntary status 4. Prior to permitting a person to consent to his or her own treatment after having been previously found incompetent to consent to treatment. History of Present Illness Capacity: Has capacity History of Present Illness: Patient is a 55-year-old man, single, no children, homeless, with a past psychiatric history of depression, anxiety disorder, alcohol use disorder, multiple psychiatric admissions, multiple suicide attempt as per patient, history of self-injurious behavior via head he has had prater, is brought in under [employer] act after allegedly overdosing on multiple medications (unspecified ) and a suicide attempt which patient was a [facility] [facility] patient was admitted to the inpatient psychiatry unit for further evaluation and management. In review of chart patient has had 2 previous psychiatric admissions here at [facility] last being on 07/15/18-07/21/18 under the care of Dr. Horton which upon that admission also there was suspicion of malingering during that admission. On my evaluation today, seen with counselor, patient found lying in hospital bed noted to be calm and cooperative. Patient states that he is feeling depressed stated having had a recent suicide attempt 4 days ago via overdose with "40 pills, everything I had " but was unable to recall his medications. Patient reports his current stressors include being in pain due to previous hip surgery, feeling depressed, lonely, being homeless. Patient reports not following up with his mental health services appointments after last discharge from this facility reports noncompliance to medications stating that he simply did not take his medications after discharge. Patient reports decreased sleep, disturbed appetite, decreased energy and concentration along with feeling depressed and stating having had suicide ideations with a long time". He stated that on the day of overdose he stated thinking about his life feeling helpless and hopeless and had drank 1-2 pints of vodka that day. He also endorses auditory hallucinations via command telling him to kill himself, denies any visual hallucinations denying delusions at this time. Patient at this time continues to report feeling depressed and anxious along with continued suicidal ideation with no specific plan. Patient is agreeable to looking at sober living facilities due to his alcohol use disorder and states wanting to participate actively in searching for this type of housing. Family psychiatric history: Cousin with suicide as per chart Past psychiatric history: Previous psychiatric limits depression, anxiety, alcohol use disorder, multiple psychiatric admissions, last being in [facility] in 07/15/18 to 07/21/18, with multiple suicide attempt as per patient, history of esophageal behavior of hitting his head on the wall, previously on Remeron and Seroquel as per last admission but also previously prescribed with stabilizer such as Depakote. Substance use history: Alcohol use disorder usually 1-2 pints of vodka daily, denies use of any other drugs, patient reports history of S prior rehab in the past. Allergies: NKDA Past medical history: History of left hip arthroplasty Social history: Homeless, high school education, single, no children, Buddhism, no background, no legal history, no asked to firearms. - Inpatient Certification I certify that the inpatient services were ordered in accordance with Medicare regulations governing the order. This includes certification that hospital inpatient services are reasonable and necessary and in the case of services not specified as inpatient-only under 42 CFR 419.22(n), that they are appropriately provided as inpatient services in accordance to with the 2-midnight benchmark under 43 CFR 412.3(e) I certify that inpatient psychiatric hospital services are medically necessary. Evaluation and treatment and/or diagnostic testing are expected to improve the patient's condition. The patient needs on a daily basis, active treatment furnished directly by or requiring the supervision of inpatient psychiatric facility personnel. Estimated Total Length of Stay (Days): 5 Plans for Post Hospital Care: Not yet determined Review of Systems All other systems reviewed negative except as stated in HPI PMFSH - History History Provided By: Patient, Medical Record - Medical History Medical History: Medical History (Last Reviewed 07/16/18 @ 16:46 by Steven Anglin MD) Pupil irregular of left eye Traumatic brain injury - Surgical History Surgical History: Surgical History (Last Reviewed 07/16/18 @ 16:46 by Steven Anglin MD) History of total left hip replacement - Family History Family History: Family History (Last Updated 07/16/18 @ 16:47 by Steven Anglin MD) Father Alcoholism - Tobacco History Second Hand Smoke Exposure: No Smoking Status: Never smoker - Alcohol History How Often Do You Have a Drink Containing Alcohol: 2 to 3 times a week - Substance Use History Substance History: Past History - Immunization History Tetanus Immunization: Unable to Assess Hx Influenza Vaccine This Season: Unable to Assess Quality Measures - Psychiatric History Violence risk to others in the last 6 months: low Violence risk to self in the last 6 months: elevated due to recent SI and alleged overdose - Substance Abuse History Drug or alcohol use in the past 12 months: see HPI - Patient Strengths Patient's strengths (minimum of 2): verbal and communicative Medications and Allergies Active Medications: Active Medications Al Hydrox/Mg Hydrox/Simethicone (Mag-Al Plus Susp Liq) 30 ml PO Q6H PRN PRN Reason: DYSPEPSIA Al Hydroxide/Mg Hydroxide (Milk Of Magnesia Liq) 30 ml PO Q12H PRN PRN Reason: Mild Constipation Aripiprazole (Abilify) 10 mg PO DAILY ALICIA Duloxetine HCl (Cymbalta) 20 mg PO BID ALICIA Hydroxyzine HCl (Atarax) 50 mg PO Q6H PRN PRN Reason: ANXIETY Ibuprofen (Motrin) 800 mg PO Q8H PRN PRN Reason: PAIN 1-10 Nicotine (Habitrol 21 Mg Patch.24 Hr) 1 patch T-DERMAL DAILY ALICIA Last Admin: 08/09/18 08:22 Dose: Not Given Trazodone HCl (Desyrel) 50 mg PO HS PRN PRN Reason: INSOMNIA Allergies Allergy/AdvReac Type Severity Reaction Status Date / Time tomato Allergy Unknown Nausea Verified 08/08/18 20:16 Exam Vital signs: Vital Signs 08/08/18 20:13 08/09/18 06:23 Temperature 98.4 F 98.0 F Pulse Rate 128 H 88 Respiratory Rate 20 18 Blood Pressure 156/84 H 145/82 H Pulse Oximetry 95 95 Intake & Output 08/08/18 08/09/18 08/09/18 18:59 06:59 18:59 Weight 83.9 kg Other: Weight On Admission 83.9 kg Narrative: Patient not noted to be in acute distress, no gross motor abnormalities, no signs of tremor or EPS, no psychomotor agitation or retardation. - Constitutional no acute distress, cooperative Mental Status Examination Appearance: Disheveled Consciousness: Alert Orientation: Person, Place, Date/Time Motor Activity: Normal gait Speech: Unremarkable Language: Adequate Fund of Knowledge: Inadequate Attention and Concentration: Adequate Memory: Unremarkable Mood: Sad Affect: Sad Thought Process & Associations: Intact Thought Content: Appropriate Hallucination Type: Auditory (Command auditory hallucination to kill himself) Delusion Type: None Suicidal Ideation: Yes Suicidal Plan: No Suicidal Intention: No Homicidal Ideation: No Homicidal Plan: No Homicidal Intention: No Insight: Fair Judgment: Impulsive Assessment and Plan - Assessment (1) Major depressive disorder, recurrent episode, severe, with psychotic behavior Code(s): F33.3 - Major depressive disorder, recurrent, severe with psychotic symptoms Status: Acute (2) Alcohol use disorder, severe, dependence Code(s): F10.20 - Alcohol dependence, uncomplicated Status: Acute - Plan Plan: Estimated LOS: [] days Patient is a 57-year-old man, single, homeless, with a past psychiatric history of depression and anxiety, alcohol use disorder with previous psychiatric admissions, multiple suicide attempts or patient, who was brought [facility] a [facility] act for alleged suicide attempt via overdose which patient currently is endorsing, along with depressive symptoms and continued command auditory hallucination to kill himself patient will be admitted to the inpatient unit for further evaluation and management. Patient will be restarted on duloxetine 20 mg p.o. twice daily with upward titration for depression along with Abilify 10 mg p.o. daily for psychotic symptoms. Patient presentation is similar to previous admission and there is suspicion of possible secondary gain with this admission for senior living will be continued on inpatient monitoring and observation for safety. Social work intervention to assist patient to connect to a sober living facilities. Patient went to be monitored for mood and behavior while on the inpatient unit. Patient will be admitted under voluntary status. Discharge planning in progress. Justification for Continued Inpatient Stay: At risk of further decompensation at lower level care.
[2018-08-09] MEDS: ARIPiprazole 10 MG Tablet PO SCH (10:03)
[2018-08-09 10:31] LABS: Calcium 9.2 mg/dL (8.5-10.1); Carbon Dioxide 29.1 meq/L (21.0-32.0); Potassium 4.6 meq/L (3.5-5.1)
[2018-08-09 10:35] LABS: Chol/HDL Ratio 3.12 Ratio; HDL Cholesterol 63.7 mg/dL (40.0-60.0)
[2018-08-09 16:36] LABS: Hemoglobin A1c 4.5 % (4.3-6.0)
[2018-08-09] MEDS: traZODone 50 MG Tablet PO PRN (20:10)
[2018-08-10] MEDS: traZODone 50 MG Tablet PO PRN (02:35)
[2018-08-10] MEDS: ARIPiprazole 10 MG Tablet PO SCH (09:01)
--- NOTE | 2018-08-10 13:30 | P.PNPSY ---
Subjective Remarks: Patient seen for follow-up, chart reviewed. Discussion nursing staff reported the patient continues to endorse command auditory hallucination, self, no behavior disturbances mostly isolative to room but is out for meals. Patient was found lying in hospital bed disheveled, likely not have showered since admission but agreeable to discharge today and requesting to be able to shave with supervision. Patient states his mood is "keeping to myself continues to report feeling depressed stating that he continues to have suicide ideations along with auditory hallucinations telling him "deal with it, take care of it". Patient reports continue to have minimum energy, with appetite being "so-so". Patient reports having difficulty with sleep last night despite trazodone 50 mg p.o. at bedtime. Review of Systems All other systems reviewed negative except as stated in HPI Mental Status Examination Appearance: Disheveled, Other (Appears to have showered since admission) Consciousness: Alert Orientation: Person, Place, Date/Time Motor Activity: Normal gait Speech: Unremarkable Language: Adequate Fund of Knowledge: Inadequate Attention and Concentration: Adequate Memory: Unremarkable Mood: Sad Affect: Sad Thought Process & Associations: Intact Thought Content: Appropriate Hallucination Type: Auditory (Command auditory hallucination to kill himself) Delusion Type: None Suicidal Ideation: Yes Suicidal Plan: No Suicidal Intention: No Homicidal Ideation: No Homicidal Plan: No Homicidal Intention: No Insight: Fair Judgment: Impulsive Assessment and Plan - Assessment (1) Major depressive disorder, recurrent episode, severe, with psychotic behavior Code(s): F33.3 - Major depressive disorder, recurrent, severe with psychotic symptoms Status: Acute (2) Alcohol use disorder, severe, dependence Code(s): F10.20 - Alcohol dependence, uncomplicated Status: Acute - Plan Plan: Patient at this time continues suicide ideation along with command auditory hallucinations to kill himself. We will titrate Abilify to 50 mg p.o. at bedtime for psychosis, increase trazodone to 100 mg p.o. at bedtime for sleep disturbance. Continue rest of medications. Continue to monitor mood and behavior. Encourage patient to participate in self-care and hygiene. We will order shave order under supervision. Continue to encourage patient to participate in groups and activities while on the unit. Patient to participate actively and engaging in acquiring acceptance into sober living facilities as part of discharge planning. Discharge planning in progress. Justification for Continued Inpatient Stay: At risk of further decompensation at lower level care.
[2018-08-10] MEDS ORDERED: traZODone 100 MG Tablet PO SCH (21:00)
--- NOTE | 2018-08-11 12:31 | P.DSPSY ---
Psychiatry Discharge Summary Inpatient Psychiatric care?: Yes Advance Directives: No Mental Health Advance Directive: No Health Care Proxy: No - Admission Admission Date: August 08, 2018 19:42 - Admission Diagnosis (1) Major depressive disorder, recurrent episode, severe, with psychotic behavior Code(s): F33.3 - Major depressive disorder, recurrent, severe with psychotic symptoms (2) Alcohol use disorder, severe, dependence Code(s): F10.20 - Alcohol dependence, uncomplicated Brief History: Patient is a 55-year-old man, single, no children, homeless, with a past psychiatric history of depression, anxiety disorder, alcohol use disorder, multiple psychiatric admissions, multiple suicide attempt as per patient, history of self-injurious behavior via head he has had prater, is brought in under [employer] act after allegedly overdosing on multiple medications (unspecified ) and a suicide attempt which patient was a transfer from [facility] under [employer] act patient was admitted to the inpatient psychiatry unit for further evaluation and management. In review of chart patient has had 2 previous psychiatric admissions here at [facility] last being on 07/15/18-07/21/18 under the care of Dr. Horton which upon that admission also there was suspicion of malingering during that admission. On my evaluation today, seen with counselor, patient found lying in hospital bed noted to be calm and cooperative. Patient states that he is feeling depressed stated having had a recent suicide attempt 4 days ago via overdose with "40 pills, everything I had " but was unable to recall his medications. Patient reports his current stressors include being in pain due to previous hip surgery, feeling depressed, lonely, being homeless. Patient reports not following up with his mental health services appointments after last discharge from this facility reports noncompliance to medications stating that he simply did not take his medications after discharge. Patient reports decreased sleep, disturbed appetite, decreased energy and concentration along with feeling depressed and stating having had suicide ideations with a long time". He stated that on the day of overdose he stated thinking about his life feeling helpless and hopeless and had drank 1-2 pints of vodka that day. He also endorses auditory hallucinations via command telling him to kill himself, denies any visual hallucinations denying delusions at this time. Patient at this time continues to report feeling depressed and anxious along with continued suicidal ideation with no specific plan. Patient is agreeable to looking at sober living facilities due to his alcohol use disorder and states wanting to participate actively in searching for this type of housing. Family psychiatric history: Cousin with suicide as per chart Past psychiatric history: Previous psychiatric limits depression, anxiety, alcohol use disorder, multiple psychiatric admissions, last being in [facility] in 07/15/18 to 07/21/18, with multiple suicide attempt as per patient, history of esophageal behavior of hitting his head on the wall, previously on Remeron and Seroquel as per last admission but also previously prescribed with stabilizer such as Depakote. Substance use history: Alcohol use disorder usually 1-2 pints of vodka daily, denies use of any other drugs, patient reports history of S prior rehab in the past. Allergies: NKDA Past medical history: History of left hip arthroplasty Social history: Homeless, high school education, single, no children, Zoroastrian, no background, no legal history, no asked to firearms. Tobacco Use In Past 30 Days: Yes How Often Do You Have a Drink Containing Alcohol: 2 to 3 times a week Hospital Course: Patient is a 55-year-old man, single, no children, homeless, with a past psychiatric history of depression, anxiety disorder, alcohol use disorder, multiple psychiatric admissions, multiple suicide attempt as per patient, history of self-injurious behavior via head he has had prater, is brought in under [employer] act after allegedly overdosing on multiple medications (unspecified ) and a suicide attempt which patient was a transfer from [facility] under [employer] act patient was admitted to the inpatient psychiatry unit for further evaluation and management. Patient was admitted to a locked, inpatient psychiatric unit. Appropriate precautions were in place throughout patient's hospital stay. Patient was seen and examined on the unit by psychiatry. Psychotropic medications were restarted and adjusted. There was decrease of suicidality and no homicidality on the inpatient unit. Patient's mood improved with the benefit of psychopharmacological treatment and had no behavioral disturbance since admission. Patient was noted to have reached stable mood, noted to participate and engage in treatment and interact with staff adequately. Patient noted to be future oriented with plans to continue treatment and outpatient follow-up appointments for continuity of care. Counselor has arranged discharge plan which patient was accepted to sober living facility but opted to return back to friend's residence and re-engage in employ. On the day of discharge: Patient seen and examined; chart reviewed. Case discussed with nurse and counselor. No behavioral issues overnight. On my examination today, the patient denies any suicidal homicidal ideation, intent or plan on direct questioning and contracts for safety. Patient denies any perceptional disturbances and no delusional material verbalized today. Patient denies any side effects from medication and has understanding of medication regimen and education. No physical complaints. Suicide and violence risk assessment on day of discharge both suggest lower imminent risk, and the patient's level of function is adequate for plan level of outpatient care. Patient has maximized benefit from this inpatient psychiatric hospital stay and will be discharged with discharge plan as arranged by counselor. Patient advised to return to psychiatric emergency room for any concerning psychiatric symptoms. Patient agrees with plan. - Discharge Discharge Date: 08/11/18 - Discharge Diagnosis (1) Major depressive disorder, recurrent episode, severe, with psychotic behavior Code(s): F33.3 - Major depressive disorder, recurrent, severe with psychotic symptoms Status: Acute (2) Alcohol use disorder, severe, dependence Code(s): F10.20 - Alcohol dependence, uncomplicated Status: Acute Discharge Disposition: Home - Discharge Instructions Discharge Diet: Heart Healthy Diet Activities You Can Perform: Weight Bearing As Tolerat - Discharge Time > 30 minutes Mental Status Examination Appearance: Disheveled, Other (Appears to have showered since admission) Consciousness: Alert Orientation: Person, Place, Date/Time Motor Activity: Normal gait Speech: Unremarkable Language: Adequate Fund of Knowledge: Inadequate Attention and Concentration: Adequate Memory: Unremarkable Mood: Appropriate Affect: Appropriate Thought Process & Associations: Intact Thought Content: Appropriate Hallucination Type: None Delusion Type: None Suicidal Ideation: No Suicidal Plan: No Suicidal Intention: No Homicidal Ideation: No Homicidal Plan: No Homicidal Intention: No Insight: Fair Judgment: Impulsive Discharge/Advance Care Plan - Results Vital Signs: Last Vital Signs Temp 98 F 08/11/18 05:44 Pulse 94 H 08/11/18 05:44 Resp 17 08/11/18 05:44 BP 110/71 08/11/18 05:44 Pulse Ox 97 08/11/18 05:44 Lab Results: Laboratory Results Hemoglobin A1c 4.5 % (4.3-6.0) 08/09/18 09:35 Triglycerides 144 mg/dL (42-150) 08/09/18 09:35 Cholesterol 199 mg/dL (120-200) 08/09/18 09:35 LDL Cholesterol, Calc 107 mg/dL (0-99) H 08/09/18 09:35 HDL Cholesterol 63.7 mg/dL (40.0-60.0) H 08/09/18 09:35 Summary of Procedures: none Pending Results: None - Medications Number of antipsychotic medications at discharge: 1 - Discharge Care Plan Goals to Promote Your Health: * To prevent worsening of your condition and complications * To maintain your health at the optimal level Directions to Meet Your Goals: Take your medications as prescribed Follow your dietary instruction Follow activity as directed Keep your appointments as scheduled Take your immunizations and boosters as scheduled If your symptoms worsen call your PCP, if no PCP go to Urgent Care Center or Emergency Room For 09/03 questions related to your inpatient stay or results of tests pending at discharge, please contact Dr. Alfred Carey MD at Smoking is Dangerous to Your Health. Avoid second hand smoking
--- NOTE | 2018-08-11 14:39 | P.TTN ---
- Patient Problems Problems: 1. Discharge planning 2. Medication compliance 3. Knowledge deficit 4. Lack of coping skills - Progress Toward Goals Provider Present: Dr. Margaret Carey Provider Input: 08/11/18 Per MD Carey pt is at a baseline and will be ready for dc between today and tomorrow. Nurse Input: 08/11/18 Per RN pt has been compliant with medication and has been decreasing isolation aeb sitting at the day are more often. Psychiatric Counselors Present: Other Psychiatric Therapist Input: 08/11/18 Maried: Pt will be dc between today and tomorrw. Pt said he has a plan and will be going back to live with his friend in [place]. Group Spec/RT/OT/SUGGS Present: Andressa Chavez, JUAN DIEGO, IFEANYI De La Rosa Group Spec/RT/OT/SUGGS Input: 08/11/18 Pt has not been attending groups despite encouragement. - Documentation Teaching Recipient: Patient
== END 2018-08-11 14:45 | disposition home or self-care (01) ==
LOC: H270 19:42
PROVIDERS: ADMIT Student in an Organized Health Care Education/Training Program; ATTEND Student in an Organized Health Care Education/Training Program